=== PATIENT | female | born 1965 | race Caucasian/White ===

== ENCOUNTER 2020-12-27 14:10 | Observation (INO) ==
[2020-12-27 14:23] VITALS: RESP 20; TEMP 98.8
[2020-12-27] MEDS ORDERED: methylPREDNISolone 125 MG/2 ML VIAL IVP ONE (14:31)
[2020-12-27] MEDS ORDERED: Ipratropium/Albuterol Neb 3 ML IH ONE (14:31)
[2020-12-27 15:00] LABS: Basophils # 0.1 K/mcL (0.0-0.2); Basophils % 0.7 %; Eosinophils # 0.1 K/mcL (0.0-0.6); Eosinophils % 0.7 %; Immature Granulocytes % 0.3 % (0-4); Lymphocytes # 1.6 K/mcL (0.6-4.6); Lymphocytes % 18.5 %; Mean Corpuscular HGB Conc 34.8 g/dL (31.6-35.5); Mean Corpuscular Hemoglobin 32.9 pg (28.0-33.3); Mean Corpuscular Volume 94.7 fL (83.0-100.0); Mean Platelet Volume 9.5 fL (9.4-12.4); Monocytes # 0.5 K/mcL (0.0-1.3); Monocytes % 5.3 %; Neutrophils # 6.5 K/mcL (1.6-8.9); Platelet Count 248 K/mcL (140-400); Red Blood Count 4.86 M/mcL (3.82-4.97); Red Cell Distribution Width 13.3 % (11.5-14.5); Segmented Neutrophils % 74.5 %; White Blood Count 8.8 K/mcL (4.3-11.1)
[2020-12-27 15:15] LABS: BUN/Creatinine Ratio 8 (6-26); Blood Urea Nitrogen 6 mg/dL (6-20); Calcium 8.5 mg/dL (8.6-10.3); Carbon Dioxide 29 mEq/L (23-29); Chloride 100 mEq/L (98-107); Glucose 96 mg/dL (70-105); Osmolality,Calculated 283 (280-300); Potassium 3.5 mEq/L (3.5-5.1); Sodium 138 mEq/L (136-145); eGFR For African Americans > 60 (> 60); eGFR For Non-African Americans > 60 (> 60)
[2020-12-27 15:20] LABS: Troponin I < 0.03 ng/mL (< 0.04)
[2020-12-27] MEDS ORDERED: Acetaminophen 325 MG TABLET PO PRN (16:04)
[2020-12-27] MEDS ORDERED: Naloxone 0.4 MG/ML INJ IVP PRN (16:04)
[2020-12-27] MEDS ORDERED: traZODone 50 MG TABLET PO PRN (16:07)
[2020-12-27] MEDS ORDERED: Azithromycin 250 MG TABLET PO SCH (16:52)
[2020-12-27 16:53] VITALS: BP 117/68; PULSE 123; O2SAT 92
[2020-12-27] MEDS ORDERED: Furosemide 40 MG TABLET PO SCH (17:00)
[2020-12-27] MEDS ORDERED: *HR* Heparin 5,000 UNIT/ML VIAL SQ SCH (22:00)
[2020-12-27] MEDS ORDERED: Budesonide/Formoterol 160/4.5 1 PUFF INH IH SCH (22:00)
[2020-12-28] MEDS ORDERED: dexAMETHasone 4 MG TABLET PO SCH (09:00)
[2020-12-28] MEDS ORDERED: Lisinopril-HCTZ 20-12.5mg TABLET PO SCH (09:00)
== END 2020-12-27 17:10 | disposition home or self-care (01) ==
LOC: EMEROOPIK 14:10 → INPPIK 14:10
PROVIDERS: ADMIT Internal Medicine; ATTEND Internal Medicine